=== PATIENT | male | born 1940 | race Caucasian/White ===

== ENCOUNTER → 2017-02-07 | Outpatient (CLI) | payer OTHER | END | disposition home or self-care (01) | LOC: PCVCCLINIC 10:11 | PROVIDERS: ATTEND Internal Medicine Cardiovascular Disease | DX: I25.10 Atherosclerotic heart disease of native coronary artery without angina pectoris (principal); I10 Essential (primary) hypertension; E78.00 Pure hypercholesterolemia, unspecified; R60.9 Edema, unspecified | CPT/HCPCS: 93005; G0463 ==

== ENCOUNTER → 2017-08-12 | Outpatient (CLI) | payer OTHER | END | disposition home or self-care (01) | LOC: PCVCCLINIC 13:51 | PROVIDERS: ATTEND Internal Medicine Cardiovascular Disease | DX: I25.10 Atherosclerotic heart disease of native coronary artery without angina pectoris (principal); I48.91 Unspecified atrial fibrillation; I10 Essential (primary) hypertension; R94.31 Abnormal electrocardiogram [ECG] [EKG]; I45.10 Unspecified right bundle-branch block; E78.00 Pure hypercholesterolemia, unspecified; Z79.82 Long term (current) use of aspirin; Z79.899 Other long term (current) drug therapy; Z88.0 Allergy status to penicillin; Z87.891 Personal history of nicotine dependence | CPT/HCPCS: 93005; G0463 ==

== ENCOUNTER → 2017-08-12 | Outpatient (CLI) | payer OTHER ==
--- NOTE | 2017-08-12 14:04 | PCVCIMAG ---
APPROVED REPORT Study performed: 08/12/2017 12:53:54 EXAM: Comprehensive 2D, Doppler, and color-flow Echocardiogram Patient Location: Echo lab Status: routine BSA: 2.11 HR: 60 bpmBP: 112/60 mmHg Rhythm: NSR Other Information Study Quality: Adequate Indications CAD CABG X 6, PAROX A FIB, HTN 2D Dimensions LVEF(%): 53.78 (>50%) IVSd: 10.96 (7-11mm) LVDd: 43.17 mm PWd: 9.84 (7-11mm) LVDs: 31.28 (25-40mm) Left Atrium: 48.24 (27-40mm) Aortic Root: 36.05 mm LV Single Plane 4CH: 48.70 % LV Single Plane 2CH: 48.13 %Xiong's LVEF: 48.42 % Biplane EF: 47.2 % Volumes Left Atrial Volume (Systole) Single Plane 4CH: 55.73 mLSingle Plane 2CH: 53.50 mL LA ESV Index: 28.00 mL/m2 Aortic Valve AoV Peak Malcolm.: 1.42 m/s AO Peak Gr.: 8.25 mmHgLVOT Max P.60 mmHg LVOT Max V: 0.95 m/s Mitral Valve E/A Ratio: 0.8 MV Decel. Time: 337.77 ms MV E Max Malcolm.: 0.57 m/s MV A Malcolm.: 0.76 m/s MV PHT: 97.95 ms IVRT: 134.95 ms Pulmonary Valve PV Peak Malcolm.: 0.93 m/sPV Peak Gr.: 3.46 mmHg Pulmonary Vein P Vein S: 0.29 m/sP Vein A: 0.32 m/s P Vein D: 0.46 m/sP Vein A Dur.: 152.2 msec P Vein S/D Ratio: 0.63 Tricuspid Valve TR Peak Malcolm.: 1.83 m/s TR Peak Gr.: 13.45 mmHg Left Ventricle The left ventricle is normal size. There is normal LV segmental wall motion. There is normal left ventricular wall thickness. Left ventricular systolic function is borderline lower limits of normal. LVEF is 48%. Grade I - abnormal relaxation pattern. Right Ventricle The right ventricle is normal size. The right ventricular systolic function is normal. Atria Left atrium is moderately dilated. The right atrium size is normal. Aortic Valve Mild aortic valve sclerosis. No aortic regurgitation is present. There is no aortic valvular stenosis. Mitral Valve The mitral valve is normal in structure. Mild mitral regurgitation. No evidence of mitral valve stenosis. Tricuspid Valve The tricuspid valve is normal in structure. There is trivial tricuspid valve regurgitation noted. Unable to assess PAP however normal right sided chamber size and no indication of pulmonary hypertension. Pulmonic Valve The pulmonary valve is normal in structure. There is no pulmonic valvular regurgitation. Great Vessels The aortic root is normal in size. IVC is normal in size and collapses with >50% inspiration Pericardium There is no pericardial effusion. <Conclusion> The left ventricle is normal size. Left ventricular systolic function is borderline lower limits of normal. Grade I - abnormal relaxation pattern. The right ventricle is normal size. Left atrium is moderately dilated. Mild aortic valve sclerosis. Mild mitral regurgitation. There is no pericardial effusion.
== END | disposition home or self-care (01) ==
LOC: PCVCIMAG 13:07
PROVIDERS: ATTEND Internal Medicine Cardiovascular Disease
DX: I25.119 Atherosclerotic heart disease of native coronary artery with unspecified angina pectoris (principal); I08.3 Combined rheumatic disorders of mitral, aortic and tricuspid valves; I48.91 Unspecified atrial fibrillation; I10 Essential (primary) hypertension; E78.00 Pure hypercholesterolemia, unspecified; Z79.82 Long term (current) use of aspirin; Z79.899 Other long term (current) drug therapy
CPT/HCPCS: 93005; 93306; G0463

== ENCOUNTER → 2018-02-10 | Outpatient (CLI) | payer OTHER | END | disposition home or self-care (01) | LOC: PCVCCLINIC 14:15 | DX: I25.10 Atherosclerotic heart disease of native coronary artery without angina pectoris (principal); I10 Essential (primary) hypertension; E78.00 Pure hypercholesterolemia, unspecified; R60.9 Edema, unspecified; R94.31 Abnormal electrocardiogram [ECG] [EKG]; Z79.82 Long term (current) use of aspirin; Z79.899 Other long term (current) drug therapy; Z87.891 Personal history of nicotine dependence | CPT/HCPCS: 93005; G0463 ==

== ENCOUNTER → 2018-08-25 | Outpatient (CLI) | payer OTHER ==
[~2018-08-25] MED LIST: REGADENOSON 0.4 MG/5 ML DISP.SYRIN. IV ONE
--- NOTE | 2018-08-25 13:04 | PCVCIMAG ---
APPROVED REPORT Imaging Protocol: Rest Tc-99m/Stress Tc-99m 1 day Study performed: 08/25/2018 08:50:05 Indication: CAD Patient Location: Out-Patient Stress Nurse: Apoorva Domínguez RN, TITA Silva Tech:Franky FosterGLENN Ht: 5 ft 9 in Wt: 210 lbs BSA: 2.11 m2 HR: 64 bpm BP: 155/69 mmHg BMI: 31.00 Rhythm: Sinus Rhythm, Bifasicular Block Medical History Medical History: Age, Hyperlipidemia, HTN, Former Smoker Medications: ASA, Atorvastatin, Proscar, Metoprolol, Ditropan, KXL, Hytrin Allergies: many -non interfering with test Previous Cardiac Procedures: CABG Pretest Chest Pain Characteristics: No chest pain Exercise History: Sedentary Meds Held (24 hrs): Pt held all RX today Resting Data Rest SPECT myocardial perfusion imaging was performed in supine position 45 minutes following the intravenous injection of 11.2 mCi of Tc-99m Sestamibi. Time of rest injection: 809 Date: 08/25/2018 Administration Route: IV Administration Site: Right Hand Pharmacologic Stress Pharmacologic stress test was performed by injecting Regadenoson 0.4 mg IV push over 10-15 seconds immediately followed by the intravenous injection of 33.5 mCi of Tc-99m Sestamibi. Time of stress injection: 929 Date: 08/25/2018 Administration Route: IV Administration Site: Right Hand Gated Stress SPECT was performed 45 minutes after stress injection. The images were gated to evaluate regional wall motion and calculate left ventricular ejection fraction. Comments Prior study 06/2016 Moderate Lateral ischemia Stress Test Details Stress Test: Pharmacologic stress testing performed using 0.4 mg of regadenoson per 5 mL given IV over 10 seconds. Reason for pharmacologic stress test: Excercise intolerance. HRMax Heart Rate (APMHR): 143 bpm Resting HR: 64 bpmTarget HR (85% APMHR): 121 bpm Max HR Achieved: 98 bpm % of APMHR: 68 Recovery HR: 90 bpm BP Resting BP: 155/69 mmHg Recovery BP: 139/75 mmHg ECG Resting ECG: Sinus Rhythm, Bifasculiar block Stress ECG: Sinus Rhythm, Bifasculiar block ST Change: Non-ischemic Arrhythmia: None Recovery ECG: Sinus Rhythm, Bifasculiar block Clinical Reason for Termination: Completed protocol Stress Symptoms: Chest pain, Dyspnea, Leg Discomfort Symptoms resolved with caffeine. Study Quality Study: Good Study Data Post stress, the left ventricular ejection was 49%.. SSS: 10 SRS: 7 SDS: 4 TID = 0.92. Perfusion There is a medium area of mild to moderately reduced uptake in the basal and mid segment of the inferolateral wall which is seen on the stress images and improves on the resting images. This area thickens and moves normally and is most consistent with ischemia. Wall Motion Mildly decreased left ventricular systolic function. Nuclear Conclusion ECG Findings: non-ischemic Clinical Findings: non-diagnostic Nuclear Findings: positive for ischemia Exercise Capacity: not assessed This study reveals a reversible defect in the inferolateral segment, consistent with ischemia. There is mild segmental LV dysfunction, EF of 49%.
== END | disposition home or self-care (01) ==
LOC: PCVCIMAG 07:38
PROVIDERS: ATTEND Internal Medicine Cardiovascular Disease
DX: I25.10 Atherosclerotic heart disease of native coronary artery without angina pectoris (principal); E78.5 Hyperlipidemia, unspecified; I10 Essential (primary) hypertension; Z87.891 Personal history of nicotine dependence
CPT/HCPCS: 78452; 93017; A9500; J2785

== ENCOUNTER → 2019-03-02 | Outpatient (CLI) | payer OTHER | END | disposition home or self-care (01) | LOC: PCVCCLINIC 10:00 | PROVIDERS: ATTEND Internal Medicine Cardiovascular Disease | DX: I25.10 Atherosclerotic heart disease of native coronary artery without angina pectoris (principal); I10 Essential (primary) hypertension; E78.00 Pure hypercholesterolemia, unspecified; R60.9 Edema, unspecified; Z79.82 Long term (current) use of aspirin; Z87.891 Personal history of nicotine dependence | CPT/HCPCS: 93005; G0463 ==